=== PATIENT | female | born 1985 | race Caucasian/White ===

== ENCOUNTER 2019-09-28 02:00 | Emergency (ER) | payer OTHER, MEDICAID ==
[~2019-09-28] VITALS: Ht 152.4 cm; Wt 104.0 kg
[2019-09-28] MEDS ORDERED: ACETAMINOPHEN 325MG TABLET PO ONE (02:30)
[2019-09-28 04:41] VITALS: BP 131/74
== END 2019-09-28 04:42 | disposition home or self-care (01) ==
LOC: ER 02:00
DX: J02.0 Streptococcal pharyngitis (principal)
CPT/HCPCS: 71045; 87430; 99284